=== PATIENT | male | born 1970 | race Hispanic/Latino ===

== ENCOUNTER 2018-04-27 09:33 | Emergency (ER) | payer BC, OTHER | END 2018-04-27 10:01 | disposition home or self-care (01) | LOC: EDH 09:33 | DX: J00 Acute nasopharyngitis [common cold] (principal); R05 Cough; Z90.89 Acquired absence of other organs ==

== ENCOUNTER 2018-04-30 08:24 | Emergency (ER) | payer BC | END 2018-04-30 09:59 | disposition home or self-care (01) | LOC: EDH 08:24 | DX: H10.33 Unspecified acute conjunctivitis, bilateral (principal) ==

== ENCOUNTER 2018-10-23 23:31 | Emergency (ER) | payer BC | END 2018-10-24 00:08 | disposition home or self-care (01) | LOC: EDH 23:31 | DX: L02.211 Cutaneous abscess of abdominal wall (principal); Z90.49 Acquired absence of other specified parts of digestive tract | CPT/HCPCS: 10060 ==

== ENCOUNTER → 2019-01-03 | Outpatient (CLI) | payer BC | END | disposition home or self-care (01) | LOC: RAH 09:01 | PROVIDERS: ATTEND Family Medicine | DX: S83.282A Other tear of lateral meniscus, current injury, left knee, initial encounter (principal); X58.XXXA Exposure to other specified factors, initial encounter; Y93.89 Activity, other specified; Y92.89 Other specified places as the place of occurrence of the external cause; Y99.8 Other external cause status | CPT/HCPCS: 73721 ==

== ENCOUNTER → 2021-08-09 | Outpatient (CLI) | payer MEDICAID ==
[~2021-08-09] VITALS: Ht 170.2 cm; Wt 111.9 kg
[~2021-08-09] MED LIST: APIX5TAB PO; CETI-89 PO; GLIM4TAB36 PO; HYDR-4060 PO; IBUP-2077 PO; METF-444 PO; SEMA3TAB4 PO
[2021-08-11 09:01] VITALS: BP 144/84
== END | disposition home or self-care (01) ==
LOC: CANPRESDC → EDSTATUS 09:00 → DAH 10:00
PROVIDERS: ATTEND Otolaryngology
DX: Z01.818 Encounter for other preprocedural examination (principal); J32.0 Chronic maxillary sinusitis
CPT/HCPCS: 87635; C9803

== ENCOUNTER → 2023-03-21 | Outpatient (CLI) | payer OTHER, MEDICARE | END | disposition home or self-care (01) | LOC: RAH 13:58 | PROVIDERS: ATTEND Student in an Organized Health Care Education/Training Program | DX: I74.3 Embolism and thrombosis of arteries of the lower extremities (principal); I82.409 Acute embolism and thrombosis of unspecified deep veins of unspecified lower extremity; R42 Dizziness and giddiness; I82.431 Acute embolism and thrombosis of right popliteal vein | CPT/HCPCS: 93970 ==

== ENCOUNTER → 2023-03-30 | Outpatient (CLI) | payer OTHER, MEDICARE ==
[2023-03-30 16:03] LABS: CREATININE 0.8 mg/dL (0.5-1.5); POTASSIUM 3.9 mmol/L (3.5-5.1)
== END | disposition home or self-care (01) ==
LOC: LAB 15:08
PROVIDERS: ATTEND Student in an Organized Health Care Education/Training Program
DX: R55 Syncope and collapse (principal)
CPT/HCPCS: 36415; 80048

== ENCOUNTER → 2023-04-04 | Outpatient (CLI) | payer OTHER, MEDICARE ==
[~2023-04-04] MED LIST changes: +IOHEXOL 350 MG/ML 100ML INFUS..BTL IV ONE
== END | disposition home or self-care (01) ==
LOC: RAH 10:22
PROVIDERS: ATTEND Student in an Organized Health Care Education/Training Program
DX: R55 Syncope and collapse (principal)
CPT/HCPCS: 75574; Q9967

== ENCOUNTER → 2024-03-01 | Outpatient (CLI) | payer OTHER ==
[~2024-03-01] MED LIST changes: -IOHEXOL 350 MG/ML 100ML INFUS..BTL IV ONE
--- NOTE | 2024-03-01 14:10 | HMCIMG ---
MR SHOULDER LEFT WO HISTORY: Pain COMPARISON: None TECHNIQUE: MRI of the left shoulder was performed utilizing multiple pulse sequences in axial, coronal and sagittal planes. Patient was not given contrast through intravenous route. FINDINGS: Mild increase in intensity is seen involving the superior lateral aspect of the humeral head suggests a bone bruise (microtrabecular fracture) with Hill-Sachs deformity. Hypertrophic degenerative changes are seen of the acromioclavicular joint. There is downward sloping of acromion in a medial to lateral direction encroaching upon the rotator cuff tendon and muscles. Findings are suspicious for complete rotator cuff tendon tear. MR arthrogram may be helpful. Small amount of fluid is seen in the subacromial subdeltoid posterior complex. The glenoid labrum is intact. Bicipital tendon is seen within its groove. No appreciable amount of joint effusion is seen. IMPRESSION: 1. Findings suspicious for complete rotator cuff tendon tear. Near, MR arthrogram may be helpful. DJD. Small joint effusion with fluid in the subacromial subdeltoid posterior complex.
== END | disposition home or self-care (01) ==
LOC: RAH 12:47
PROVIDERS: ATTEND Internal Medicine
DX: M19.012 Primary osteoarthritis, left shoulder (principal); M75.82 Other shoulder lesions, left shoulder; R29.898 Other symptoms and signs involving the musculoskeletal system; M25.412 Effusion, left shoulder
CPT/HCPCS: 73221